=== PATIENT | male | born 1970 | race Caucasian/White ===

== ENCOUNTER 2020-07-08 11:52 | Emergency (ER) | payer OTHER, SELFPAY ==
[2020-07-08 12:18] VITALS: BP 155/95; PULSE 112; RESP 18; TEMP 37.4; O2SAT 95; BMI 36.2
[2020-07-08] MEDS: Lidocaine HCl 2 % MPF 5 ML VIAL INFILTRATI (13:25)
--- NOTE | 2020-07-08 13:42 | ED_ITS ---
HPI - Animal Bite General Chief Complaint: Animal Bite Stated Complaint: dog bite Source: patient Mode of arrival: ambulatory Limitations: no limitations History of Present Illness HPI narrative: presents to ED due to dog bite to right side of neck. Patient states his neighbor dog attacked him. Patient states his neighbor sent him proved of documentation that dog is up-to-date with his rabies shot. Patient denies any dizziness or profuse bleeding. Patient denies any trauma elsewhere in the body. Patient states up-to-date with tetanus Related Data Previous Rx's Medication Instructions Recorded amoxicillin-pot clavulanate 1 tab PO Q12H #20 tab 07/08/20 [Augmentin] Allergies Allergy/AdvReac Type Severity Reaction Status Date / Time No Known Allergies Allergy Verified 07/08/20 12:21 Review of Systems Review of Systems: Yes all other systems are reviewed and are negative Constitutional: Constitutional: Reports as per HPI and Reports no additional constitutional complaints Eyes: Eyes: Reports as per HPI and Reports no additional eye complaints ENT: Reports system reviewed and no additional complaints, except as documented and Reports as per HPI Cardiovascular: Cardiovascular: Reports as per HPI and Reports no additional cardiovascular complaints Respiratory: Respiratory: Reports as per HPI and Reports no additional respiratory complaints Gastrointestinal: Gastrointestinal: Reports as per HPI and Reports no additional gastrointestinal complaints Genitourinary: Genitourinary: Reports no additional male genitourinary compla ints and Reports as per HPI Musculoskeletal: Musculoskeletal: Reports no additional musculoskeletal complaints and Reports as per HPI Neurologic: Reports system reviewed and no additional complaints, except as documented and Reports as per HPI Psychiatric: Psychiatric: Reports no additional psychiatric complaints and Reports as per HPI [facility] Past Medical History Medical History (Updated 07/08/20 @ 13:46 by SONY Ricketts) No known health problems Social History Social History Advance Directives: No Advance Directives Information Provided: No Physical Exam Vital Signs: Vital Signs: Vital Signs Temp Pulse Resp BP Pulse Ox 07/08/20 12:18 99.4 F 112 H 18 155/95 H 95 Body Mass Index 36.2 Const: General: cooperative, healthy appearing, comfortable, no acute distress, alert and awake Orientation/consciousness: oriented to person, oriented to place, oriented to time and patient oriented x3 HENMT: Head: Yes normal to inspection, Yes No palpable skull fracture present, No atraumatic, No contusion, No hematoma, No laceration, No palpable skull fracture, No raccoon eyes and No scalp lesion Eyes: General: appearance normal, both eyes and all related structures Visual Collins: normal visual collins by confrontation Neck: Other: positive for laceration on the anterior aspect of the right side of his neck. Laceration very superficial. Negative for any squirting of blood to indicate carotid injury. Neck: Yes normal visual inspection, Yes full ROM, Yes no lymphadenopathy, Yes no meningeal signs and No tender Chest: Chest palpation & inspection: normal inspection of the chest and normal palpation of entire chest wall Resp: Effort & Inspection: normal respiratory effort and able to speak in complete sentences Cardio: Jugular venous distension: no JVD Heart sounds: S1 normal heart sound present and S2 normal heart sound present GI: Inspection: Yes normal to inspection and No abdominal wall ecchymosis : General: No CVA tenderness and Yes no CVA tenderness Back/Spine/Pelvis: Back: no CVA tenderness, No CVA tenderness and No back tenderness Skin: Trauma: laceration ( Superficial laceration on right side of neck) Neuro: General: oriented to person, oriented to place, oriented to time, patient oriented x3 and no meningeal signs Extrem: General: Yes normal to inspection and Yes full ROM Psych: Appearance: grossly normal, well kempt and not disheveled Course Course Course Narrative: patient states he is up-to-date with tetanus shot. Patient will have laceration repaired and discharged with antibiotics. Reevaluation(s) Reevaluation #1: Laceration was repaired. Two stitches was placed in 2.5 cm laceration anterior aspect of the neck. 5 mL of lidocaine 2% was used for anesthesia. Wound was cleaned with normal saline and Betadine. Time: 13:45 MDM - Animal Bite MDM Narrative Medical decision making narrative: dog bite. Laceration repair Discharge Plan Discharge Clinical Impression: Dog bite, Laceration Patient Disposition: Home, Self-Care Instructions: Animal Bite (ED), Laceration (ED) Additional Instructions: return to the ED immediately for swelling of neck, shortness of breath, chest pain, drooling, weakness, or any other concerning symptoms. sutures should be removed in 7 days at your PCP or at the ED Prescriptions: New amoxicillin-pot clavulanate [Augmentin] 875-125 mg tablet 1 tab PO Q12H Qty: 20 RF: 0 Interventions: ED Discharge Assessment Last Done: 07/08/20 13:55 Discharge Date/Time: 07/08/20 13:58 Print Language: [place]
--- NOTE | 2020-07-08 13:57 | PC.NURSE ---
PT FOLLOWED UP WITH NEIGHBOR ABOUT THE DOG THAT BIT HIM. THE DOG HAD UP TO DATE RABIES AND VACCINES ARE UP TO DATE. PT WILL FOLLOW UP WITH POLICE.
== END 2020-07-08 13:58 | disposition home or self-care (01) ==
PROVIDERS: Emergency Provider Emergency Medicine
DX: S11.95XA Open bite of unspecified part of neck, initial encounter (principal); M54.2 Cervicalgia; W54.0XXA Bitten by dog, initial encounter; Y93.9 Activity, unspecified; Y92.009 Unspecified place in unspecified non-institutional (private) residence as the place of occurrence of the external cause
CPT/HCPCS: 12001; 99284

== ENCOUNTER 2020-07-15 10:05 | Emergency (ER) | payer OTHER, SELFPAY ==
--- NOTE | 2020-07-15 10:28 | ED.WOUNDLAC ---
HPI - Wound/Laceration General Chief Complaint: Wound/Laceration Stated Complaint: suture removal Time Seen by Provider: 07/15/20 10:28 Source: patient Mode of arrival: ambulatory Limitations: no limitations History of Present Illness HPI narrative: States here as instructed to get stitches removed from his right-sided inferior chin area which he had stitches placed for dog bite here about a week ago states he has no complaints. States the stitches actually may have fallen out while he was shaving but not sure. He has no complaints. Currently taking Augmentin. Onset (ago): day(s) Location: face Patient tetanus UTD: Yes Related Data Previous Rx's Medication Instructions Recorded amoxicillin-pot clavulanate 1 tab PO Q12H #20 tab 07/08/20 [Augmentin] Allergies Allergy/AdvReac Type Severity Reaction Status Date / Time No Known Allergies Allergy Verified 07/08/20 12:21 Review of Systems Review of Systems: Constitutional: No Weight loss, No Fever, No Chills, No Night Sweats, No Fatigue, No Malaise ENT/Mouth: No Hearing loss, No Ear Pain, No Nasal Congestion, No Sinus Pain, No Hoarseness, No sore throat, No Rhinorrhea, No Swallowing Difficulty Eyes: No Eye Pain, No Swelling, No Redness, No Foreign Body, No Discharge, No Vision Changes Cardiovascular: No Chest Pain Respiratory: No Cough Gastrointestinal: No Nausea, No Vomiting, No Diarrhea Musculoskeletal: No joint pain, No Myalgias, No Joint Swelling Skin: No Skin Lesions, No rash Neuro: No Weakness, No Numbness, No Paresthesias, No Loss of Consciousness, No Dizziness, No Headache Psych: No Anxiety/Panic Heme/Lymph: No Bruising, No Bleeding,No Lymphadenopathy Endocrine: No Polyuria, No Polydipsia, No Temperature Intolerance Yes all other systems are reviewed and are negative [facility] Past Medical History Attestation statement: The following information was validated with the patient. Medical History (Updated 07/15/20 @ 10:30 by Redd Powell NP) No known health problems Social History Social History Advance Directives: No Advance Directives Information Provided: No Physical Exam Vital Signs: Vital Signs: Reviewed Const: General: cooperative and healthy appearing; No acute distress or intoxicated appearing Nutritional Appearance: average body habitus Orientation/consciousness: patient oriented x3 HENMT: Head: Yes normal to inspection Ears: hearing grossly normal bilaterally Eyes: General: appearance normal, both eyes and all related structures Visual Collins: normal visual collins by confrontation Neck: Neck: Yes normal visual inspection, No positive Brudzinski's sign, No positive Kernig's sign and No tender Thyroid: Thyroid normal Neck images: 1. Healing site, no open area. No scab. No stitches present. No induration or tender palpation. Chest: Chest palpation & inspection: normal inspection of the chest Resp: Effort & Inspection: normal respiratory effort Cardio: Jugular venous distension: no JVD Skin: General skin exam: no rashes or lesions noted Neuro: General: patient oriented x3 Extrem: General: Yes normal to inspection Discharge Plan Discharge Clinical Impression: Encounter for re-check of laceration wound Patient Disposition: Home, Self-Care Instructions: Facial Laceration (ED) Additional Instructions: Today your re-evaluated for the wound for possible suture removal It appears that the step [address] have been removed this could have been done by accidentally or shaving At this time the site appears to be healing well there is no signs of infection It is important for you to finish the course of antibiotics as previously prescribed Return if any concerns or worsening symptoms otherwise follow home care instructions reviewed Thank you Prescriptions: No Action amoxicillin-pot clavulanate [Augmentin] 875-125 mg tablet 1 tab PO Q12H Qty: 20 RF: 0 Referrals: ED Physician,Generic [Emergency Provider] - 10 days (Your primary care as needed )
[2020-07-15 10:38] VITALS: BP 153/80; PULSE 104; RESP 16; TEMP 37.1; O2SAT 96; BMI 34.8
== END 2020-07-15 10:42 | disposition home or self-care (01) ==
PROVIDERS: Emergency Provider Emergency Medicine
DX: Z48.02 Encounter for removal of sutures (principal)
CPT/HCPCS: 99283; 99284

== ENCOUNTER 2020-07-30 08:52 | Outpatient (REF) | payer OTHER, SELFPAY ==
[2020-07-30 11:15] LABS: MANUAL DIFF FLAG NO
[2020-07-30 11:24] LABS: Basophils Percent Auto 0.5 % (0-2); Eosinophils Absolute Auto 0.1 X10*3/uL (0.0-0.4); Hematocrit 50.2 % (42-52); Hemoglobin 16.8 g/dl (14.0-18.0); Imm Gran Abs Auto 0.03 X10*3/uL (0.00-0.03); Imm Gran Pct Auto 0.3 % (0.0-0.4); Lymphocytes Absolute Auto 1.4 X10*3/uL (1.2-4.9); Lymphocytes Percent Auto 16.1 % (20-40); Mean Corpuscular HGB Conc 33.5 g/dl (31.0-36.0); Mean Corpuscular Hemoglobin 31.4 pg (27.0-33.0); Mean Corpuscular Volume 93.8 fL (80-98); Mean Platelet Volume 9.6 fL (9.4-12.4); Monocytes Absolute Auto 0.7 X10*3/uL (0.1-1.2); Monocytes Percent Auto 7.4 % (2-11); Neutrophils Absolute Auto 6.6 X10*3/uL (2.0-8.3); Neutrophils Percent Auto 74.7 % (45-73); Platelet Count 226 X10*3/uL (160-400); Red Blood Count 5.35 X10*6/uL (4.60-5.80); Red Cell Distribution Width 12.6 % (11.0-16.0); White Blood Count 8.8 X10*3/uL (4.8-10.8)
[2020-07-30 11:53] LABS: Anion Gap 12 (12-20); Blood Urea Nitrogen 12 mg/dL (9-16); Calcium 8.6 mg/dL (8.4-10.2); Carbon Dioxide 30 mmol/L (22-29); Chloride 103 mmol/L (96-108); Cholesterol 178 mg/dL; Estimated Glomerular Filt Rate > 60; Glucose Fasting 122 mg/dL (60-99); HDL Cholesterol 31 mg/dL; LDL Cholesterol Calculated 105 mg/dl; Potassium 4.6 mmol/l (3.3-5.1); Sodium 140 mmol/L (135-145); Triglycerides 214 mg/dL
[2020-07-30 11:59] LABS: TSH reflex Free T4 1.74 mIU/mL (0.32-4.0)
== END 2020-07-30 08:53 | disposition home or self-care (01) ==
LOC: HO.HMGCLDS 08:52
PROVIDERS: PCP Internal Medicine; Visit Provider Internal Medicine
DX: E66.9 Obesity, unspecified (principal); R03.0 Elevated blood-pressure reading, without diagnosis of hypertension; R53.83 Other fatigue; Z00.01 Encounter for general adult medical examination with abnormal findings
CPT/HCPCS: 36415; 80048; 80061; 84443; 85025

== ENCOUNTER 2021-05-15 06:30 | Outpatient (REF) | payer OTHER, SELFPAY ==
[2021-05-15 11:44] LABS: Estimated Average Glucose 97 mg/dL; Hemoglobin A1C 131.7402 umol/L
[2021-05-15 12:07] LABS: Alanine Aminotransferase 26 U/L (0-40); Albumin Level 3.9 g/dL (3.5-5.0); Alkaline Phosphatase 43 U/L (39-117); Anion Gap 12 (12-20); Aspartate Amino Transferase 33 U/L (5-37); Bilirubin Total 0.5 mg/dL (0.0-1.0); Blood Urea Nitrogen 16 mg/dL (9-16); Calcium 9.2 mg/dL (8.4-10.2); Carbon Dioxide 28 mmol/L (22-29); Chloride 102 mmol/L (96-108); Estimated Glomerular Filt Rate > 60; Glucose Random 142 mg/dL (60-115); Sodium 138 mmol/L (135-145); Total Protein 6.9 g/dL (6.5-8.0)
== END 2021-05-15 06:31 | disposition home or self-care (01) ==
LOC: HO.HMGCLDS 06:30
PROVIDERS: PCP Internal Medicine; Visit Provider Internal Medicine
DX: E66.9 Obesity, unspecified (principal); I10 Essential (primary) hypertension; R73.9 Hyperglycemia, unspecified; Z72.0 Tobacco use
CPT/HCPCS: 36415; 80053; 83036